=== PATIENT | male | born 1990 | race Caucasian/White ===

== ENCOUNTER 2024-07-05 19:33 | Emergency (ER) | payer BC ==
[~2024-07-05] VITALS: Ht 180.3 cm; Wt 104.3 kg
[2024-07-05 21:20] VITALS: TEMP 98.4
[2024-07-05 22:01] LABS: BASOPHILS # (AUTO) 0.1 K/uL (0.0-0.2); BASOPHILS % (AUTO) 0.6 % (0.0-2.0); EOSINOPHILS # (AUTO) 0.1 K/uL (0.0-0.7); EOSINOPHILS % (AUTO) 1.2 % (0.0-6.0); HEMATOCRIT 43 % (39-51); HEMOGLOBIN 15.1 g/dL (13.5-17.5); LYMPHOCYTES # (AUTO) 3.6 K/uL (0.8-4.8); LYMPHOCYTES % (AUTO) 36.9 % (20.0-44.0); MEAN CORPUSCULAR HEMOGLOBIN 31 PG (26.0-33.0); MEAN CORPUSCULAR HGB CONC 35 g/dl (31.0-36.0); MEAN CORPUSCULAR VOLUME 89 fL (80-96); MONOCYTES # (AUTO) 1.1 K/uL (0.1-1.30); MONOCYTES % (AUTO) 11.3 % (2.0-12.0); NEUTROPHILS # (AUTO) 4.9 K/uL (1.8-8.9); PLATELET COUNT (AUTO) 343 K/uL (150-450); RED BLOOD CELL COUNT(AUTO) 4.86 MIL/uL (4.5-6.0); RED CELL DISTRIBUTION WIDTH 13.9 % (11.5-15.0); WHITE BLOOD COUNT (AUTO) 9.7 K/uL (4.3-11.0)
[2024-07-05 22:08] LABS: CREATININE 0.9 mg/dL (0.6-1.3); POTASSIUM 3.9 mmol/L (3.5-5.1)
[2024-07-05 22:12] LABS: APPEARANCE,URINE CLEAR (CLEAR); BILIRUBIN,URINE NEGATIVE (NEGATIVE); BLOOD, URINE TRACE-INTA Ery/uL (NEGATIVE); COLOR,URINE YELLOW (YELLOW); KETONES,URINE NEGATIVE (NEGATIVE); LEUKOCYTE ESTERASE ,URINE NEGATIVE (NEGATIVE); NITRITE, URINE NEGATIVE (NEGATIVE); PROTEIN,URINE NEGATIVE (NEGATIVE); UGLUCOSE NEGATIVE (NEGATIVE); UROBILINOGEN,URINE 0.2 EU/dL (0.2)
[2024-07-05 22:22] LABS: BILIRUBIN,DIRECT 0.1 mg/dL (0.0-0.2); BILIRUBIN,TOTAL 0.3 mg/dL (0.2-1.0); TOTAL PROTEIN, SERUM 7.6 g/dL (6.4-8.2)
[2024-07-05 22:51] LABS: ADD URINE CULTURE NO; BACTERIA,URINE None seen /HPF (None Seen); RBC,URINE 0-2 /HPF (0-2); SQUAMOUS EPITHELIAL CELL,UR None Seen /HPF (None Seen); WBC,URINE NONE SEEN /HPF (0-3)
[2024-07-05] MEDS ORDERED: KETOROLAC TROMETHAMINE 15 MG/ML VIAL ONE (22:52)
[2024-07-05] MEDS ORDERED: CYCLOBENZAPRINE 10 MG TABLET ONE (22:53)
[2024-07-05] MEDS ORDERED: LIDOCAINE 5% (PATCH) 1 EA PATCH TP ONE (22:53)
[2024-07-05] MEDS ORDERED: ACETAMINOPHEN ES 500 MG TABLET ONE (22:53)
[2024-07-05] MEDS: KETOROLAC TROMETHAMINE 15 MG/ML VIAL IM ONE (22:58)
[2024-07-05] MEDS: LIDOCAINE 5% (PATCH) 1 EA PATCH TP SCH (22:58)
[2024-07-05] MEDS: CYCLOBENZAPRINE 10 MG TABLET PO ONE (22:58)
[2024-07-05] MEDS: ACETAMINOPHEN ES 500 MG TABLET PO ONE (22:58)
[2024-07-06] MEDS ORDERED: CYCL10TA9 PO (00:07)
[2024-07-06] MEDS ORDERED: ACET-2605 PO (00:07)
[2024-07-06] MEDS ORDERED: LIDO30AD10 TP (00:07)
[2024-07-06] MEDS ORDERED: MELO-107 PO (00:07)
[2024-07-06 00:12] VITALS: BP 139/84; O2SAT 97
== END 2024-07-06 00:13 | disposition home or self-care (01) ==
LOC: ER 19:42
DX: M54.50 Low back pain, unspecified (principal); F11.20 Opioid dependence, uncomplicated; F17.200 Nicotine dependence, unspecified, uncomplicated; G40.909 Epilepsy, unspecified, not intractable, without status epilepticus; Z62.819 Personal history of unspecified abuse in childhood
CPT/HCPCS: 99284; 96372; 85025; 80048; 83690; 80076; 81001; 36415; J1885